=== PATIENT | female | born 1990 | race African-American/Black ===

== ENCOUNTER 2020-10-21 09:43 | Inpatient (IN) ==
[2020-10-21] MEDS ORDERED: ceFAZolin 2,000 MG in PREMIX 1 EACH IV ONE (09:53)
[2020-10-21] MEDS ORDERED: FAMOTIDINE 20 MG/2 ML VIAL IV ONE (09:53)
[2020-10-21] MEDS ORDERED: CITRIC ACID/SODIUM CITRATE 30 ML UDCUP PO ONE (09:53)
[2020-10-21] MEDS ORDERED: LACTATED RINGERS 1,000 ML IV ONE (09:56)
[2020-10-21] MEDS ORDERED: LACTATED RINGERS 1,000 ML IV SCH ×2 (10:00→17:30)
[2020-10-21 10:18] LABS: Basophils % 0.2 % (0.0-0.8); Eosinophils # 0.1 10*3/uL (0.0-0.87); Eosinophils % 0.8 % (0.00-10.9); Hematocrit 33.4 VOL% (35.7-47.0); Hemoglobin 10.4 GM/DL (12.0-16.0); Lymphocytes # 2.7 10*3/uL (1.4-4.0); Lymphocytes % 27.8 % (21.3-54.2); Mean Corpuscular HGB Conc 31.1 GM/DL (32-36); Mean Corpuscular Volume 71.8 FL (87-102); Monocytes % 8.4 % (1.7-12.7); Neutrophils % 61.8 % (38.7-73.9); Platelet Count 140 T/CUMM (130-400); Red Blood Count 4.65 MC/CUMM (3.8-5.5); Red Cell Distribution Width 15.9 % (9.3-17.3); White Blood Count 9.6 T/CUMM (4-12)
[2020-10-21 10:36] LABS: Hypochromasia 1+; Lymphocytes 29 % (20-55); Microcytosis 1+; Platelet Estimate Adequate; Segmented Neutrophils 66 % (50-85); Total Cells Counted 100
[2020-10-21] MEDS ORDERED: OXYTOCIN/LR 30 UNIT/1,000 ML BAG IV ONE (12:54)
[2020-10-21] MEDS ORDERED: OXYTOCIN 10 UNIT/ML VIAL IM ONE (12:54)
[2020-10-21] MEDS ORDERED: ONDANSETRON 4 MG/2 ML VIAL ONE (15:02)
[2020-10-21] MEDS ORDERED: BUPIVACAINE SPINAL 0.75% 2 ML AMP SPINAL ONE (15:02)
[2020-10-21] MEDS ORDERED: PHENYLEPHRINE 1 MG/10 ML SYRINGE IV ONE (15:02)
[2020-10-21] MEDS ORDERED: fentaNYL 100 MCG/2 ML VIAL ONE (15:03)
[2020-10-21] MEDS ORDERED: MORPHINE 10 MG/10 ML VIAL ONE (15:03)
[2020-10-21] MEDS ORDERED: OXYTOCIN/LR 20 UNIT/1,000 ML BAG IV ONE ×2 (15:10→17:05)
[2020-10-21] MEDS ORDERED: miSOPROStoL 200 MCG TABLET ONE (15:10)
[2020-10-21] MEDS ORDERED: TRANEXAMIC ACID 1,000 MG/10 ML VIAL ONE (15:10)
[2020-10-21] MEDS ORDERED: CARBOPROST TROMETHAMINE 250 MCG/ML AMP IM ONE (15:11)
[2020-10-21] MEDS ORDERED: METHYLERGONOVINE 0.2 MG/1 ML AMP ONE (15:11)
[2020-10-21 16:01] LABS: Cord Arterial Blood HCO3 24.5 MMOL/L
[2020-10-21 16:06] LABS: Cord Venous Blood PCO2 43.5 MMHG; Cord Venous Blood PO2 23.1 MMHG
[2020-10-21] MEDS ORDERED: DEXAMETHASONE 4 MG/1 ML VIAL ONE (16:22)
[2020-10-21] MEDS ORDERED: BUPIVACAINE MPF 0.5% /EPI 30 ML VIAL ONE (16:22)
[2020-10-21 16:27] LABS: Bilirubin,Urine Negative (Negative); Blood, Urine Negative (Negative); Glucose,Urine (UA) Negative (Negative); Ketones,Urine 5 mg/dL (Negative); Mucus,Urine Occasional /LPF (Occasional); Nitrite,Urine Negative (Negative); Protein,Urine 30 MG/DL; RBC,Urine 16 /HPF (0-4); Urine Appearance Slightly Hazy (Clear); Urine Color Yellow (Yellow); Urine Specific Gravity 1.011 (1.001-1.035); Urine Urobilinogen < 2.0 EU/DL (0.2-1.0); WBC,Urine 198 /HPF (0-6)
[2020-10-21] MEDS ORDERED: ACETAMINOPHEN 325 MG TABLET PO PRN (17:05)
[2020-10-21] MEDS ORDERED: IBUPROFEN 800 MG TABLET PO PRN (17:05)
[2020-10-21] MEDS ORDERED: ONDANSETRON 4 MG/2 ML VIAL IV PRN (17:05)
[2020-10-21] MEDS ORDERED: RHO(D) IMMUNE GLOBULIN 300 MCG SYRINGE IM ONE (17:05)
[2020-10-21] MEDS ORDERED: SIMETHICONE CHEW 80 MG TABLET PO PRN (17:05)
[2020-10-21] MEDS: ceFAZolin 1,000 MG in SYRINGE 1 EACH IV SCH (23:40)
[2020-10-21] MEDS: DOCUSATE SODIUM 100 MG CAPSULE PO SCH (23:57)
[2020-10-22 06:11] LABS: Basophils % 0.1 % (0.0-0.8); Eosinophils % 0.1 % (0.00-10.9); Hematocrit 31.9 VOL% (35.7-47.0); Hemoglobin 9.9 GM/DL (12.0-16.0); Immature Granulocytes % 0.7 %; Lymphocytes # 2.2 10*3/uL (1.4-4.0); Lymphocytes % 14.8 % (21.3-54.2); Mean Corpuscular Volume 71.5 FL (87-102); Monocytes % 9.1 % (1.7-12.7); Neutrophils % 75.2 % (38.7-73.9); Platelet Count 131 T/CUMM (130-400); Red Blood Count 4.46 MC/CUMM (3.8-5.5); Red Cell Distribution Width 15.8 % (9.3-17.3); White Blood Count 15.1 T/CUMM (4-12)
[2020-10-22 06:30] LABS: Hypochromasia 1+; Microcytosis 1+; Platelet Estimate Adequate
[2020-10-22] MEDS: ceFAZolin 1,000 MG in SYRINGE 1 EACH IV SCH (06:35)
[2020-10-22] MEDS: DOCUSATE SODIUM 100 MG CAPSULE PO SCH ×2 (10:08→20:50)
[2020-10-22] MEDS: MULTIVITAMIN (PRENATAL) TABLET PO SCH (10:08)
[2020-10-22] MEDS: MAGNESIUM HYDROXIDE SUSP 30 ML UDCUP PO PRN (20:50)
[2020-10-22] MEDS: METOCLOPRAMIDE 10 MG TABLET PO SCH (20:50)
[2020-10-23] MEDS: METOCLOPRAMIDE 10 MG TABLET PO SCH ×2 (04:51→14:16)
[2020-10-23 09:10] VITALS: BP 103/63
[2020-10-23] MEDS: MULTIVITAMIN (PRENATAL) TABLET PO SCH (10:02)
[2020-10-23] MEDS: MAGNESIUM HYDROXIDE SUSP 30 ML UDCUP PO PRN (10:02)
[2020-10-23] MEDS: DOCUSATE SODIUM 100 MG CAPSULE PO SCH (10:02)
== END 2020-10-23 14:00 | disposition home or self-care (01) | DRG 788 ==
LOC: N.LD 09:43 → N.OB 20:10
PROVIDERS: ADMIT Obstetrics & Gynecology; ATTEND Obstetrics & Gynecology
PROC: LDCSECT (ICD-10-PCS; 2020-10-21 14:00)